=== PATIENT | female | born 1945 | race Hispanic/Latino ===

== ENCOUNTER 2017-05-21 17:35 | Emergency (ER) | payer OTHER ==
[~2017-05-21 17:35] MED LIST: AEC81 PO; MECL-111 PO
[2017-05-21] MEDS ORDERED: ONDANSETRON HCL 4 MG/2 ML VIAL ONE ×2 (17:39→17:58)
[2017-05-21] MEDS ORDERED: METOCLOPRAMIDE 10 MG/2 ML VIAL ONE (17:58)
[2017-05-21] MEDS ORDERED: SODIUM CHLORIDE 0.9% 500ML 500 ML IV ONE (17:59)
[2017-05-21 18:13] LABS: CREATININE 0.7 mg/dL (0.5-1.5); POTASSIUM 3.5 mmol/L (3.5-5.1)
[2017-05-21 18:14] LABS: APPEARANCE,URINE Clear (CLEAR); BILIRUBIN,URINE Negative (NEGATIVE); COLOR,URINE Yellow (YELLOW); GLUCOSE, URINE (UA) Negative (NEGATIVE); KETONES,URINE 15 mg/dL (NEGATIVE); LEUKOCYTE ESTERASE ,URINE Negative (NEGATIVE); NITRATE,URINE Negative (NEGATIVE); OCCULT BLOOD,URINE Negative (NEGATIVE); PH,URINE 8.5 (5.0-8.0); PROTEIN,URINE Negative (NEGATIVE); UROBILINOGEN,URINE 0.2 mg/dL (0.2-1.0)
[2017-05-21 18:16] LABS: ALBUMIN 3.7 g/dL (3.5-5.0); BILIRUBIN,TOTAL 0.4 mg/dL (0.2-1.0); TOTAL PROTEIN, SERUM 8.3 g/dL (6.0-8.3)
[2017-05-21] MEDS ORDERED: MECLIZINE HCL 25 MG TABLET ONE (18:17)
[2017-05-21 18:26] LABS: BASOPHILS % (AUTO) 0.3 % (0.0-5.0); EOSINOPHILS % (AUTO) 0.4 % (0.0-8.0); HEMATOCRIT 39.3 % (36-48); LYMPHOCYTES % (AUTO) 27.7 % (21.0-51.0); MEAN CORPUSCULAR HEMOGLOBIN 30.2 pg (27.0-33.0); MEAN CORPUSCULAR HGB CONC 34.4 g/dL (32.0-36.0); MEAN CORPUSCULAR VOLUME 87.7 fL (79-99); MONOCYTES % (AUTO) 6.2 % (3.0-13.0); NEUTROPHILS % (AUTO) 65.4 % (40.0-77.0); PLATELET COUNT (AUTO) 237 K/uL (130-400); RED BLOOD CELL COUNT(AUTO) 4.49 MIL/uL (4.00-5.50); RED CELL DISTRIBUTION WIDTH 12.8 % (11.0-15.5); WHITE BLOOD COUNT (AUTO) 9.9 K/uL (4.8-10.8)
[2017-05-21 18:52] LABS: AMORPHOUS SEDIMENT,UR Rare /LPF (None Seen); BACTERIA,URINE Rare /HPF (None Seen); RBC,URINE None Seen /HPF (0-1); WBC,URINE 0-1 /HPF (0-1)
== END 2017-05-21 20:12 | disposition home or self-care (01) ==
LOC: EDH 17:35
DX: R42 Dizziness and giddiness (principal); R11.2 Nausea with vomiting, unspecified; R00.1 Bradycardia, unspecified; R03.0 Elevated blood-pressure reading, without diagnosis of hypertension; Z79.899 Other long term (current) drug therapy
CPT/HCPCS: 36415; 71045; 80053; 81001; 84484; 85025; 93005; 96374; 96375; 99285; J2405; J2765; J7040

== ENCOUNTER → 2018-02-26 | Outpatient (CLI) | payer OTHER | END | disposition home or self-care (01) | LOC: RAH 10:35 | PROVIDERS: ATTEND Internal Medicine | DX: Z12.31 Encounter for screening mammogram for malignant neoplasm of breast (principal) | CPT/HCPCS: 77067 ==

== ENCOUNTER → 2020-09-09 | Outpatient (CLI) | payer OTHER ==
[~2020-09-09] MED LIST changes: -MECL-111 PO; +MECL-160 PO
== END | disposition home or self-care (01) ==
LOC: RAH 15:06
PROVIDERS: ATTEND Internal Medicine
DX: Z12.31 Encounter for screening mammogram for malignant neoplasm of breast (principal); Z00.01 Encounter for general adult medical examination with abnormal findings
CPT/HCPCS: 77067

== ENCOUNTER 2022-02-24 16:48 | Emergency (ER) | payer OTHER ==
[~2022-02-24] VITALS: Ht 154.9 cm; Wt 71.7 kg
[2022-02-24 17:22] LABS: BASOPHILS % (AUTO) 0.4 % (0.0-5.0); EOSINOPHILS % (AUTO) 2.1 % (0.0-8.0); HEMATOCRIT 38.9 % (36-48); LYMPHOCYTES % (AUTO) 34.3 % (21.0-51.0); MEAN CORPUSCULAR HEMOGLOBIN 29.6 pg (27.0-33.0); MEAN CORPUSCULAR HGB CONC 33.4 g/dL (32.0-36.0); MEAN CORPUSCULAR VOLUME 88.6 fL (79-99); MONOCYTES % (AUTO) 6.5 % (3.0-13.0); PLATELET COUNT (AUTO) 190 K/uL (130-400); RED BLOOD CELL COUNT(AUTO) 4.39 MIL/uL (4.00-5.50); RED CELL DISTRIBUTION WIDTH 12.2 % (11.0-15.5); WHITE BLOOD COUNT (AUTO) 7.3 K/uL (4.8-10.8)
[2022-02-24 17:35] LABS: ALBUMIN 3.6 g/dL (3.5-5.0); CREATININE 0.7 mg/dL (0.5-1.5); POTASSIUM 3.8 mmol/L (3.5-5.1)
[2022-02-24] MEDS ORDERED: NITROGLYCERIN 1GM OINT 1 INCH/1GM TD ONE (20:30)
[2022-02-24] MEDS ORDERED: GABAPENTIN 300 MG CAPSULE PO SCH (20:30)
[2022-02-24] MEDS ORDERED: MORPHINE 2 MG SYG IM ONE (21:30)
[2022-02-24] MEDS ORDERED: ONDANSETRON 4MG INJ ONE (22:31)
[2022-02-24] MEDS ORDERED: ONDANSETRON 4MG INJ IVP ONE (23:00)
[2022-02-24] MEDS ORDERED: GABA300C PO (23:27)
[2022-02-24] MEDS ORDERED: DULO60CA45 PO (23:27)
[2022-02-24] MEDS ORDERED: IBUP-1493 PO (23:27)
[2022-02-24 23:45] VITALS: BP 178/77
[2022-02-25] MEDS ORDERED: ONDANSETRON 4MG INJ IVP ONE
== END 2022-02-24 23:57 | disposition home or self-care (01) ==
LOC: EDH 16:48
DX: M79.674 Pain in right toe(s) (principal); I96 Gangrene, not elsewhere classified; G62.9 Polyneuropathy, unspecified; I10 Essential (primary) hypertension; Z79.82 Long term (current) use of aspirin; Z79.899 Other long term (current) drug therapy; Z98.890 Other specified postprocedural states
CPT/HCPCS: 99285; 96374; 80053; 85025; 85651; 87040 ×2; 83605; 36415; 73630; 96376; 93005; 96372; J2405 ×2

== ENCOUNTER → 2024-12-01 | Outpatient (CLI) | payer OTHER ==
[~2024-12-01] MED LIST changes: +DULO60CA45 PO; +GABA300C PO; +IBUP-1493 PO; -MECL-160 PO; +MECL-302 PO
--- NOTE | 2024-12-01 17:36 | HMCIMG ---
EXAM: CR CHEST, 2 VIEWS CLINICAL HISTORY: 79-year-old female nonspecific reaction to cell-mediated immunity measurement of gamma interferon COMPARISON: XR chest 05/21/2017 TECHNIQUE: Frontal and lateral radiographs of the chest. FINDINGS: Lines/Devices: None. Lungs: Radiographically clear. No consolidation or ground-glass opacities are observed. There is no pleural effusion. There is no pneumothorax. 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 The cardiac silhouette is not enlarged. The central airway and mediastinal contours are unremarkable. Bones and soft tissues: There is osteopenia. Mild degenerative changes of the thoracic spine. IMPRESSION: 1. No acute cardiopulmonary pathology. 2. Ectatic aorta, similar to prior XR chest 05/21/2017. 3. Osteopenia and mild degenerative changes of the thoracic spine. /[place]
== END | disposition home or self-care (01) ==
LOC: RAH 15:01
PROVIDERS: ATTEND Internal Medicine
DX: R76.12 Nonspecific reaction to cell mediated immunity measurement of gamma interferon antigen response without active tuberculosis (principal); M47.814 Spondylosis without myelopathy or radiculopathy, thoracic region; I77.819 Aortic ectasia, unspecified site; M85.80 Other specified disorders of bone density and structure, unspecified site
CPT/HCPCS: 71046